=== PATIENT | male | born 1985 | race Caucasian/White ===

== ENCOUNTER 2023-06-17 00:20 | Emergency (ER) | payer MEDICARE, MEDICAID, SELFPAY ==
[2023-06-17 00:28] VITALS: BP 136/112; PULSE 92; RESP 23; TEMP 36.1; O2SAT 98
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
== END 2023-06-17 00:56 | disposition home or self-care (01) ==
LOC: ER 01:06
PROVIDERS: Emergency Provider Emergency Medicine; PCP General Practice
DX: F20.9 Schizophrenia, unspecified (principal)
CPT/HCPCS: 99281; 99282

== ENCOUNTER 2023-07-13 06:37 | Emergency (ER) | payer MEDICARE, MEDICAID, SELFPAY ==
[2023-07-13 06:41] VITALS: BP 164/79; PULSE 96; RESP 18; TEMP 37.2; O2SAT 98
[2023-07-13] MEDS: LORazepam 1 MG TAB PO (06:55)
--- NOTE | 2023-07-13 07:03 | ED.GENADUL_ITS ---
HPI General Date/Time Provider Initiated Documentation: 07/13/23 06:39 . HPI Narrative: 38-year-old male history of schizophrenia endorses recent psychiatric stay at [facility] presents with persistent distressing visual and auditory hallucinations described as a desizing machine back tender holding his separate head and screaming at him telling he is going to hell. Patient also has thoughts of harming others however did not elaborate. Endorses that at [facility] he was initiated on paliperidone monthly IM injections which helped initially Related Data Home Medications Medication Instructions Recorded Confirmed atomoxetine 18 mg capsule 18 mg PO QAM 06/17/23 07/13/23 escitalopram oxalate 20 mg tablet 20 mg PO QHS 06/17/23 07/13/23 risperidone 2 mg tablet (Risperdal) 2 mg PO BID 06/17/23 07/13/23 rosuvastatin 40 mg tablet (Crestor) 40 mg PO QHS 06/17/23 07/13/23 Allergies Allergy/AdvReac Type Severity Reaction Status Date / Time No Known Allergies Allergy Unverified 07/13/23 06:50 General Stated Complaint: PsychEval HENRY: 3 Review of Systems Narrative: Review of Systems Constitutional: negative Eyes: negative ENT: negative Cardiovascular: negative Respiratory: negative Gastrointestinal: negative : negative Musculoskeletal: negative Skin: negative Neurologic: negative Psych: Auditory visual hallucinations, thoughts of harming others Exam Narrative Exam Narrative: Physical Examination General: alert, awake, cooperative, appears anxious HEENT: normocephalic, atraumatic; PERRL, EOM intact, conjunctiva normal; no nasal discharge; moist mucous membranes, oral and pharyngeal mucosa normal, tolerating secretions Neck: supple, trachea midline; full ROM Chest: normal to inspection Respiratory: normal respiratory effort, speaking in full sentences Skin: no lesions, rashes or trauma appreciated Neuro: AAOx3, normal speech, moving all extremities Extremities: No signs of trauma Psych: Fifth speech, anxiety, auditory and visual hallucinations, thoughts of harming others Course Vital Signs Vital signs: Vital Signs Temperature 37.2 C 07/13/23 06:41 Pulse 96 H 07/13/23 06:41 Respiratory Rate 18 07/13/23 06:41 Blood Pressure 164/79 H 07/13/23 06:41 Pulse Oximetry 98 07/13/23 06:41 Temperature 37.2 C 07/13/23 06:41 Temperature Source Skin 07/13/23 06:41 Pulse 96 H 07/13/23 06:41 Respiratory Rate 18 07/13/23 06:41 Respiratory Effort Normal, Non-Labored 07/13/23 06:44 Blood Pressure 164/79 H 07/13/23 06:41 Blood Pressure Position Sitting 07/13/23 06:41 Pulse Oximetry 98 07/13/23 06:41 Oxygen Delivery Method Room Air 07/13/23 06:41 Oxygen Flow Rate 0 07/13/23 06:41 Pain Level 0 07/13/23 06:41 Medical Decision Making 38-year-old male history of schizophrenia recent discharge from [facility] for psychiatric treatment, initiated on paliperidone monthly IM injections, presents with recurrent distressing auditory and visual hallucinations as well as thoughts of harming others. Patient is alert oriented interactive no signs of trauma or intoxication. No signs of infection. Patient medically cleared. Have placed consultation for [facility] human services to evaluate patient for possible placement. Given p.o. Ativan for anxiety and rest. Chart review of [facility] discharge information suggest the patient's last dose of paliperidone was sometime around 06 July. Patient amenable to inpatient treatment if necessary. Patient change into gown belongings to be taken with security patient transition to zone B. Awaiting mental health evaluation. Quality:[facility] Health Related Social Needs: No Data to Display [facility] All Active Problems Schizophrenia (Chronic) Social History Smoking/Tobacco Use Status: Current every day Smoking risk assessment performed?: Yes Alcohol Intake: current Alcohol Intake frequency: a few times a month Drug use: Occasionally Substance use type: marijuana Housing: apartment Do you feel safe at home: Yes Do you feel safe in your relationship?: Yes Discharge Plan Discharge Details Chief Complaint: PsychEval Primary Care Provider: Daniel Erickson ED Provider: Nasim Bruno Home Meds and New Rx's Prescriptions: No Action atomoxetine 18 mg capsule 18 mg PO QAM risperidone [Risperdal] 2 mg tablet 2 mg PO BID escitalopram oxalate 20 mg tablet 20 mg PO QHS rosuvastatin [Crestor] 40 mg tablet 40 mg PO QHS
[2023-07-13 07:38] LABS: *AMPHETAMINES SCREEN URINE Negative (Negative); *BARBITURATES SCREEN URINE Negative (Negative); *BENZODIAZEPINES SCREEN URINE Negative (Negative); Cannabinoids THC Positive (Negative); Cocaine Screen,Urine Negative (Negative); METHADONE URINE SCREEN Negative (Negative); OPIATES URINE SCREEN Negative (Negative)
[2023-07-13 07:41] LABS: Tricyclic Antidepressants Negative (Negative)
--- NOTE | 2023-07-13 08:50 | ED.PROG_ITS ---
Date of service: 07/13/23 Time of Service: 08:50 Medical Decision Making 38-year-old gentleman well-known to the department with a history of schizophrenia presents for evaluation of anxiety. Patient was evaluated by mental health who is very familiar with the patient. The provided and agreed upon a safety plan. The patient is comfortable discharge home. He has an appointment with mental health this afternoon. Return precautions advised. Quality:[facility] Health Related Social Needs: No Data to Display Sign Out Sign Out Data: Sign Out Comment: schizophrenia, active auditory and visual hallucinations, thoughts of harming others; awaiting [facility] eval for possible placement Last updated by Nasim Bruno MD at 07/13/23 07:22 Discharge Plan Disposition Patient Disposition: Home Condition: Stable Discharge Details Clinical Impression: Schizophrenia Primary Care Provider: Daniel Erickson ED Provider: Armando Gibbs Home Meds and New Rx's Prescriptions: No Action atomoxetine 18 mg capsule 18 mg PO QAM risperidone [Risperdal] 2 mg tablet 2 mg PO BID escitalopram oxalate 20 mg tablet 20 mg PO QHS rosuvastatin [Crestor] 40 mg tablet 40 mg PO QHS Discharge Instructions Additional Instructions: Please continue your medications and follow-up with mental health as scheduled
[2023-07-13 12:00] VITALS: BP 119/81; PULSE 80; RESP 18; TEMP 35.6; O2SAT 98
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
== END 2023-07-13 12:19 | disposition home or self-care (01) ==
PROVIDERS: Emergency Medicine; Emergency Provider Emergency Medicine; PCP General Practice
DX: R44.0 Auditory hallucinations (principal); R44.1 Visual hallucinations; F41.9 Anxiety disorder, unspecified; F20.9 Schizophrenia, unspecified; F17.200 Nicotine dependence, unspecified, uncomplicated; Z79.899 Other long term (current) drug therapy
CPT/HCPCS: 00123; 80307; 99283

== ENCOUNTER 2023-07-24 10:36 | Emergency (ER) | payer MEDICARE, MEDICAID, SELFPAY ==
[2023-07-24 10:53] VITALS: BP 133/90; PULSE 120; RESP 20; TEMP 37.2; O2SAT 96
[2023-07-24 11:13] VITALS: BP 132/98; PULSE 118; RESP 16; O2SAT 99
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
== END 2023-07-24 11:52 | disposition home or self-care (01) ==
PROVIDERS: Emergency Provider Physician Assistant; PCP General Practice
DX: T23.252A Burn of second degree of left palm, initial encounter (principal); T31.0 Burns involving less than 10% of body surface; X15.3XXA Contact with hot saucepan or skillet, initial encounter; Y93.G3 Activity, cooking and baking; Y92.010 Kitchen of single-family (private) house as the place of occurrence of the external cause
CPT/HCPCS: 99283

== ENCOUNTER 2023-07-29 12:05 | Emergency (ER) | payer MEDICARE, MEDICAID, SELFPAY ==
[2023-07-29 12:11] VITALS: BP 164/90; PULSE 98; RESP 17; TEMP 36.6; O2SAT 99
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
== END 2023-07-29 13:09 | disposition home or self-care (01) ==
PROVIDERS: Emergency Provider Physician Assistant; PCP General Practice
DX: T23.202A Burn of second degree of left hand, unspecified site, initial encounter (principal); X12.XXXA Contact with other hot fluids, initial encounter
CPT/HCPCS: 99282; 99283